=== PATIENT | female | born 1975 ===

== ENCOUNTER 2021-05-11 18:56 | Emergency (ER) | payer SELFPAY ==
[2021-05-11 18:58] VITALS: BP 114/62; PULSE 112; RESP 18; TEMP 36.6; O2SAT 100; BMI 22.2
--- NOTE | 2021-05-11 19:10 | ED.RN ---
PATIENT CAME TO THE ER DESK AND NO LONGER WANTS TO WAIT. SHE WILL SEE HOME PCP TOMORROW
== END 2021-05-11 19:25 | disposition left against medical advice (07) ==
LOC: ED 19:52
DX: M25.551 Pain in right hip (principal)